=== PATIENT | male | born 1955 | race Caucasian/White ===

== ENCOUNTER 2023-03-06 13:07 | Emergency (ER) | payer OTHER ==
[~2023-03-06] VITALS: Ht 177.8 cm; Wt 63.5 kg
[~2023-03-06 13:07] MED LIST: ASPIR-TRIN325 MG PO; CARVEDILOL25 MG PO; NITROSTAT0.4 MG SL; PLAVIX75 MG PO; SIMVASTATIN20 MG PO
[2023-03-06] MEDS ORDERED: ASPIRIN81 MG PO (13:27)
--- NOTE | 2023-03-06 15:13 | EKG ---
[facility] [address] [facility] [place], [place] [address] Signed Normal sinus rhythm Normal ECG No previous ECGs available Confirmed by DEANNE HAGAN MD ([id number]) on 03/06/2023 3:12:54 PM Electronically Signed By: DEANNE HAGAN MD 03/06/231512 PATIENT NAME: ANTONIOMAGNOLIA Electrocardiogram DATE OF : 55 PHYSICIAN: DEANNE HAGAN MD REPORT #: [id number] REPORT IS CONFIDENTIAL AND NOT TO BE RELEASED WITHOUT AUTHORIZATION
[2023-03-06] MEDS ORDERED: NAPROSYN500 MG PO (15:53)
[2023-03-06 16:10] VITALS: BP 141/73
== END 2023-03-06 16:10 | disposition home or self-care (01) ==
LOC: ED 13:07
DX: R09.1 Pleurisy (principal); F17.200 Nicotine dependence, unspecified, uncomplicated; Z86.73 Personal history of transient ischemic attack (TIA), and cerebral infarction without residual deficits; Z79.82 Long term (current) use of aspirin
CPT/HCPCS: 36415; 71045; 80053; 83735; 84484; 85025; 85610; 93005; 93010; 99406

== ENCOUNTER 2025-03-05 07:40 | Emergency (ER) | payer OTHER ==
[~2025-03-05] VITALS: Ht 177.8 cm; Wt 67.8 kg
[~2025-03-05 07:40] MED LIST changes: +ASPIRIN81 MG PO; +NAPROSYN500 MG PO
[2025-03-05] MEDS ORDERED: ASPIRIN 81 MG CHEW PO SCH (07:45)
[2025-03-05] MEDS ORDERED: HEParin SOD (PORCINE) 5,000 UNIT/ML VIAL IV ONE ×3 (07:45→07:57)
[2025-03-05] MEDS ORDERED: ASPIRIN 81 MG CHEW ONE (07:48)
[2025-03-05] MEDS ORDERED: HEPARIN SOD,PORK IN 0.45% NACL 500 ML IV ONE (07:50)
[2025-03-05] MEDS ORDERED: CLOPIDOGREL BISULFATE 75 MG TAB ONE (07:53)
[2025-03-05] MEDS ORDERED: TICAGRELOR 90 MG TAB ONE (07:54)
[2025-03-05] MEDS ORDERED: NITROGLYCERIN PACKET TOP ONE (08:00)
[2025-03-05] MEDS ORDERED: TICAGRELOR 90 MG TAB PO ONE (08:00)
[2025-03-05] MEDS ORDERED: ASPIRIN 81 MG CHEW PO ONE (08:00)
[2025-03-05] MEDS ORDERED: HEPARIN SOD,PORK IN 0.45% NACL 500 ML IV SCH (08:00)
[2025-03-05 08:01] VITALS: BP 108/68
[2025-03-05 08:08] LABS: BASOPHILS 0.7 % (0.2-1.2); EOSINOPHILS 1.7 % (0.8-7.0); HEMATOCRIT 45.4 % (40.1-51.0); HEMOGLOBIN 15.7 g/dL (13.7-17.5); LYMPHOCYTES 19.2 % (21.8-53.1); MCH 32.9 PG (25.7-32.2); MCHC 34.6 g/dL (32.3-36.5); MCV 95.2 fL (79.0-92.2); MONOCYTES 8.3 % (5.3-12.2); NEUTROPHILS 69.8 % (34.0-67.9); PLATELET COUNT 336 K/uL (163-337); RBC 4.77 M/uL (4.63-6.08)
[2025-03-05 08:14] LABS: INR 0.93 (0.80-1.30)
[2025-03-05 08:25] LABS: ALBUMIN 3.8 g/dL (3.4-5.0); ANION GAP 13.5 (7-21); BILIRUBIN, TOTAL 0.6 mg/dL (0.2-1.0); BUN/CREATININE RATIO 16.66 (6.0-28.6); CALCIUM 8.7 mg/dL (8.5-10.1); CREATININE, SERUM 0.9 mg/dL (0.70-1.30); POTASSIUM 3.5 mmol/L (3.5-5.1); PROTEIN, TOTAL 7.6 g/dL (6.4-8.2)
--- NOTE | 2025-03-05 13:25 | EKG ---
[facility] [address] [facility] [place] [address] Signed Sinus rhythm with occasional premature ventricular complexes Right bundle branch block Left anterior fascicular block Bifascicular block Minimal voltage criteria for LVH, may be normal variant ( R in aVL ) Anteroseptal infarct , possibly acute Lateral injury pattern ACUTE [place] / STEMI Abnormal ECG No previous ECGs available Confirmed by Jf Reddy MD ([id number]) on 03/05/2025 1:24:51 PM Electronically Signed By: JF REDDY MD 03/05/25 1325 PATIENT NAME: MAGNOLIA ALVAREZ Electrocardiogram DATE OF : 55 PHYSICIAN: JF REDDY MD REPORT #: [id number] REPORT IS CONFIDENTIAL AND NOT TO BE RELEASED WITHOUT AUTHORIZATION
== END 2025-03-05 08:01 | disposition short-term general hospital (02) ==
LOC: ED 07:40
PROVIDERS: Emergency Medicine
DX: I21.3 ST elevation (STEMI) myocardial infarction of unspecified site (principal); F17.200 Nicotine dependence, unspecified, uncomplicated; Z79.82 Long term (current) use of aspirin; Z86.73 Personal history of transient ischemic attack (TIA), and cerebral infarction without residual deficits
CPT/HCPCS: 36415; 71045; 80053; 83880; 85025; 85610; 93005; 93010; 96374; 99291; A9270; J1644

== ENCOUNTER 2025-04-05 07:55 | Emergency (ER) | payer OTHER ==
[~2025-04-05] VITALS: Ht 177.8 cm; Wt 65.0 kg
[2025-04-05] MEDS ORDERED: ASPIRIN 81 MG CHEW PO ONE ×2 (08:00→08:15)
[2025-04-05 08:19] LABS: BASOPHILS 0.7 % (0.2-1.2); EOSINOPHILS 1.2 % (0.8-7.0); HEMATOCRIT 45.7 % (40.1-51.0); HEMOGLOBIN 15.5 g/dL (13.7-17.5); LYMPHOCYTES 9.8 % (21.8-53.1); MCH 31.7 PG (25.7-32.2); MCHC 33.9 g/dL (32.3-36.5); MCV 93.5 fL (79.0-92.2); MONOCYTES 6.7 % (5.3-12.2); NEUTROPHILS 81.2 % (34.0-67.9); PLATELET COUNT 271 K/uL (163-337); RBC 4.89 M/uL (4.63-6.08)
[2025-04-05] MEDS ORDERED: JARDIANCE10 MG PO (08:29)
[2025-04-05] MEDS ORDERED: FAMOTIDINE20 MG PO (08:29)
[2025-04-05] MEDS ORDERED: ATORVASTATIN CA80 MG PO (08:29)
[2025-04-05] MEDS ORDERED: ENTRESTO 24 MG1 EACH PO (08:29)
[2025-04-05] MEDS ORDERED: TICAGRELOR90 MG PO (08:29)
[2025-04-05 08:30] LABS: INR 1.02 (0.80-1.30)
[2025-04-05] MEDS ORDERED: NITROGLYCERIN0.4 MG SL (08:30)
[2025-04-05] MEDS ORDERED: METOPROLOL SUCC25 MG PO (08:30)
[2025-04-05 08:43] LABS: ALBUMIN 3.5 g/dL (3.4-5.0); ALBUMIN/GLOBULIN RATIO 0.88 (1.1-2.4); ANION GAP 15.1 (7-21); BILIRUBIN, TOTAL 1.1 mg/dL (0.2-1.0); BUN/CREATININE RATIO 11.6 (6.0-28.6); CALCIUM 8.7 mg/dL (8.5-10.1); CREATININE, SERUM 1.12 mg/dL (0.70-1.30); MAGNESIUM 2.1 mg/dL (1.8-2.4); POTASSIUM 4.1 mmol/L (3.5-5.1); PROTEIN, TOTAL 7.5 g/dL (6.4-8.2)
[2025-04-05] MEDS ORDERED: NITROGLYCERIN PACKET TOP ONE ×2 (09:30→15:45)
[2025-04-05] MEDS ORDERED: HEParin SOD (PORCINE) 5,000 UNIT/ML VIAL IV ONE (12:00)
[2025-04-05] MEDS ORDERED: HEPARIN SOD,PORK IN 0.45% NACL 500 ML IV SCH (12:00)
[2025-04-05 16:32] VITALS: BP 116/77
--- NOTE | 2025-04-05 22:44 | EKG ---
[facility] [address] [place] [address] Signed Sinus tachycardia Left axis deviation Anterior infarct (cited on or before 05-MAR-2025) T wave abnormality, consider lateral ischemia Abnormal ECG When compared with ECG of 05-MAR-2025 07:38, premature ventricular complexes are no longer present Vent. rate has increased BY 41 BPM (RBBB and left anterior fascicular block) is no longer present Questionable change in initial forces of Anterior leads Confirmed by Maria Esther Minor MD () on 04/05/2025 10:43:47 PM Electronically Signed By: MARIA ESTHER MINOR MD 04/05/25 2244 PATIENT NAME: MAGNOLIA ALVAREZ Electrocardiogram DATE OF : 55 PHYSICIAN: MARIA ESTHER MINOR MD REPORT #: [id number] REPORT IS CONFIDENTIAL AND NOT TO BE RELEASED WITHOUT AUTHORIZATION
--- NOTE | 2025-04-05 22:49 | EKG ---
[facility] [address] [facility] [place] [address] Signed Normal sinus rhythm Left axis deviation T wave abnormality, consider anterolateral ischemia Prolonged QT Abnormal ECG When compared with ECG of 05-APR-2025 08:02, No significant change was found Confirmed by Maria Esther Minor MD () on 04/05/2025 10:49:39 PM Electronically Signed By: MARIA ESTHER MINOR MD 04/05/25 2249 PATIENT NAME: ANTONIOMAGNOLIA Electrocardiogram DATE OF : 55 PHYSICIAN: MARIA ESTHER MINOR MD REPORT #: [id number] REPORT IS CONFIDENTIAL AND NOT TO BE RELEASED WITHOUT AUTHORIZATION
== END 2025-04-05 16:36 | disposition short-term general hospital (02) ==
LOC: ED 07:55
PROVIDERS: Emergency Medicine
DX: I50.21 Acute systolic (congestive) heart failure (principal); I25.10 Atherosclerotic heart disease of native coronary artery without angina pectoris; R79.89 Other specified abnormal findings of blood chemistry; F17.200 Nicotine dependence, unspecified, uncomplicated; Z86.73 Personal history of transient ischemic attack (TIA), and cerebral infarction without residual deficits; Z95.5 Presence of coronary angioplasty implant and graft; Z79.82 Long term (current) use of aspirin; Z79.899 Other long term (current) drug therapy
CPT/HCPCS: 36415; 71045; 80053; 83735; 83880; 84484; 85025; 85610; 93005; 93010; 96374; 96375; 99291; 99292; A9270; J1644